=== PATIENT | female | born 1965 | race Caucasian/White ===

== ENCOUNTER 2021-10-30 16:29 | Emergency (ER) | payer OTHER ==
[~2021-10-30] VITALS: Ht 170.2 cm; Wt 88.5 kg
[2021-10-30 19:33] LABS: ABSOLUTE NEUTROPHILS 3.4 thou/uL (1.6-8.1); HEMOGLOBIN 14.9 gm/dL (12.0-15.0); MPV 8.4 fl. (7.2-11.1); NUCLEATED RBCS 0 /100WBC
[2021-10-30 19:35] LABS: ABSOLUTE BASOPHILS 0.1 thou/uL (0.0-0.2); ABSOLUTE EOSINOPHILS 0.1 thou/uL (0.0-0.7); ABSOLUTE LYMPHOCYTES 2.9 thou/uL (0.8-5.3); ABSOLUTE MONOCYTES 0.4 thou/uL (0.0-1.2); BASOPHILS 0.8 %; EOSINOPHILS 1.9 %; HEMATOCRIT 44.5 % (37.0-47.0); MCH 33.4 pg (26.0-34.0); MCHC 33.5 g/dL (28.0-37.0); MCV 99.9 fL (80.0-100.0); MONOCYTES 5.7 %; PLATELET COUNT* 238 thou/uL (150-400); POLYS 49.6 %; RBC 4.45 mil/uL (4.20-5.00); RDW-CV 13.6 % (10.5-14.5); WBC 6.9 thou/uL (4.0-11.0)
[2021-10-30 19:40] LABS: CALCIUM 8.9 mg/dL (8.5-10.1); CREATININE 0.6 mg/dL (0.6-1.3); POTASSIUM 3.5 mmol/L (3.5-5.1)
[2021-10-30 19:50] LABS: ALBUMIN 3.8 g/dL (3.4-5.0); TOTAL BILIRUBIN 0.5 mg/dL (<0.1-1.0); TOTAL PROTEIN 7.4 g/dL (6.4-8.2)
[2021-10-30] MEDS ORDERED: FLEXERIL PO (20:05)
[2021-10-30] MEDS ORDERED: MEDROLDOSEPACK PO (20:05)
[2021-10-30 20:36] VITALS: BP 137/76
--- NOTE | 2021-10-31 11:01 | EKG ---
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
== END 2021-10-30 20:36 | disposition home or self-care (01) ==
LOC: M.ERS 16:29
PROVIDERS: Physician Assistant
DX: R07.89 Other chest pain (principal)